=== PATIENT | male | born 1965 | race Caucasian/White ===

== ENCOUNTER 2016-10-03 07:16 | Day surgery (SDC) | payer BC, OTHER ==
[2016-10-03] MEDS ORDERED: D5 LR 1000 ML 1,000 ML IV ONE (07:17)
[2016-10-03] MEDS ORDERED: DIPRIVAN VIAL 20 ML ONE (08:26)
[2016-10-03] MEDS ORDERED: XYLOCAINE 2 % (PLAIN) ONE (08:26)
[2016-10-03 09:20] VITALS: BP 123/70
== END 2016-10-03 09:00 | disposition home or self-care (01) ==
LOC: SURG1 07:16
PROVIDERS: ATTEND Internal Medicine Gastroenterology
PROC: 0DJ08ZZ Inspection of Upper Intestinal Tract, Via Natural or Artificial Opening Endoscopic (ICD-10-PCS; principal; 2016-10-03 07:30)
PROC: 0DB68ZX Excision of Stomach, Via Natural or Artificial Opening Endoscopic, Diagnostic (ICD-10-PCS; principal; 2016-10-03 07:30)
DX: K25.9 Gastric ulcer, unspecified as acute or chronic, without hemorrhage or perforation (principal); R10.13 Epigastric pain; K21.9 Gastro-esophageal reflux disease without esophagitis; K29.60 Other gastritis without bleeding; K20.8 Other esophagitis
CPT/HCPCS: A4217; J2001; J3490; J7120

== ENCOUNTER → 2016-12-24 | Outpatient (CLI) | payer BC ==
--- NOTE | 2016-12-24 11:02 | RAD ---
HISTORY: Low back pain. Study: 5 views of the lumbar spine. Comparison: None. Findings: 5 non-rib bearing lumbar vertebra. No acute fracture or listhesis. Multilevel small anterior disc o steophyte complexes. Otherwise, the vertebral body heights and disc spaces are normal. Scattered vas cular calcifications. Surgical clips in the right upper quadrant. IMPRESSION: Chronic findings as above. Reported By:
--- NOTE | 2016-12-24 11:06 | RAD ---
Two views of the right hip Indication: Right hip pain. Findings: No fracture or malalignment of the right hip joint. Femoral acetabular joint spaces are ma intained. Pubic symphysis and SI joints are normal. No localizing soft tissue swelling within the ri ght hip. Impression: No radiographic abnormality within the right hip. Reported By:
== END ==
LOC: RAD 10:11
DX: M54.5 Low back pain (principal); M25.551 Pain in right hip; L98.8 Other specified disorders of the skin and subcutaneous tissue
CPT/HCPCS: 72110; 73501